=== PATIENT | female | born 2000 | race Two or more races ===

== ENCOUNTER 2025-05-20 22:27 | Emergency (ER) | payer OTHER ==
[~2025-05-20] VITALS: Ht 152.4 cm; Wt 43.3 kg
--- NOTE | 2025-05-20 23:03 | ED.PDOC ---
SOB-HPI HPI Comments HPI: 25-year-old female who came to ER for shortness of breath. Patient does have a history of asthma. Has been having shortness of breath since yesterday, progressively worsening with dry cough and wheezing. Denies any fever. Up on arrived at the ER, patient is saturating 86% on room air, was placed on 8 L/min it improved to 97% Initial Vitals BP: HR: RR: O2:97% Temp: Past Medical History: Asthma Past Surgical History: Hernia repair Social History: Denies smoking, alcohol intake or drugs Medications: None Allergies: Denies HPI: Poor Historian. REVIEW OF SYSTEMS: CONSTITUTIONAL: Denies acute: fever, diaphoresis, chills, generalized weakness. HEAD: Denies acute: headache, photophobia Eyes: Denies acute: Double vision, vision loss, eye pain, eye discharge. EARS: Denies acute: tinnitus, hearing loss, ear discharge, ear pain, THROAT: Denies acute: sore throat, swelling, difficulty swallowing , pain with swallowing, change in voice. NECK: Denies acute: neck pain, neck swelling, stiff neck. HEART: Denies acute : chest pain, palpitations, LUNGS: Denies acute: hemoptysis ABDOMEN: Denies acute: abdominal pain, Nausea, Vomiting, diarrhea, melena , hematemesis, hematochezia SKIN: Denies acute: rash, redness, lesions, itchiness. EXTREMITIES: Denies acute: calf pain, numbness, tingling, weakness, denies pain in extremity. Denies acute: Low back pain. Neuro: Denies acute: focal neurological deficit, motor or sensory focal neurological deficit, tremors, seizure like activity, confusion, dizziness, change in mental status, loss of bowel or bladder function, cauda equina like symptoms. : Denies acute: dysuria, hematuria, flank pain, increase in urinary frequency. PSYCH: Denies acute: hallucination, suicidal ideation, homicidal ideation. FEMALE: Denies acute: abnormal vaginal bleeding, foul odor, unusual discharge. Currently on her menstrual cycle PHYSICAL EXAM: General: ---[id number]-----acute distress, awake and alert. Head: normocephalic, atraumatic. Neck: supple, trachea is midline, no swelling. Throat: Normal phonation. Eyes:, no erythema, no purulent discharge, no proptosis, no icterus. Heart: regular rate, regular rhythm, no significant murmur appreciated. Lungs: no apparent respiratory distress, Able to speak in full sentences. No wheezing, no rhonchi, no crackles. No stridors Clear to auscultation bilaterally. Abdomen: non tender to palpation, non distended, soft, no guarding, no rebound, + bowel sounds. Neuro: Awake, Alert, oriented to name, self, situation, follows commands GCS=15. Speech is normal. Skin: no petechia, no purpura, no cyanosis, non-pale, not jaundice. Lower extremities: --no - Pitting edema no deformity, no focal swelling, no calf TTP. Makes eye contact. moves all four extremities. Face: no apparent facial droop. Ambulating in the ED independently. ED COURSE: DISCLAIMER: This medical document was created using an electronic medical record system with voice recognition software and computerized dictation system. Although this document has been carefully reviewed, there might still be some phonetic and typographical errors. Occasional wrong-word or "sound-alike" substitutions may have occurred due to the inherent limitations of voice recognition software. These areas are purely typographical due to imperfections of the software CMP.LY and do not reflect any compromise in the patient's medical care. Please read the chart carefully and recognize, using context, where these substitutions have occurred. Chief Complaint: Shortness of Breath Time Seen by MD: 23:02 Reviewed notes: Nurses Notes, Allergies Information Source: Patient Mode of Arrival: Ambulatory Past Medical History PAST MEDICAL HISTORY: Asthma Surgical History: Hernia Repair COURT RECORDER History: Denies all COURT RECORDER Hx Family History Family History: Reviewed,noncontributory to illness Social History Smoker: Non-Smoker Alcohol: Denies ETOH Use Drugs: Denies Drug Use Lives In: Home EKG EKG : Pulse Rate (adult): 87 Cardiac Rhythm: NSR Was a procedure done? Was a procedure done?: No Differential Dx Differential Diagnosis: Asthma, Bronchitis, Pneumonia, Respiratory Distress, Other (DDx include ACS, unstable angina, anxiety, PE, pneumothroax, neoplasm, cardiac ischemia, COPD, asthma, CHF, pleural effusion, tobacco abuse, pneumonia, hypoxia, hypercapnia, anemia., infection/sepsis., pulmonary edema. Asthma, Cardiac tamponade, infection.) X-Ray, Labs, Meds, VS Vital Signs Date Time Temp Pulse Resp B/P (MAP) Pulse Ox O2 Delivery O2 Flow Rate FiO2 05/21/25 00:11 97.9 88 16 109/58 (75) 96 97.9 05/20/25 23:18 87 05/20/25 23:13 18 98 Nasal Cannula* 2 28 05/20/25 23:08 87 05/20/25 22:50 97.5 97 16 106/65 (79) 96 97.5 05/20/25 22:50 Room Air* 0 21 05/20/25 22:34 97.9 108 20 116/80 98 97.9 Lab Test 05/21/25 00:03 05/20/25 23:00 Range/Units Troponin I High Sensitivity 29 31 </=34 ng/L White Blood Count 8.4 4.4-10.8 10^3/uL Red Blood Count 5.25 H 4.0-5.20 10^6/uL Hemoglobin 13.9 12.2-16.2 g/dL Hematocrit 41.4 36.0-46.0 % Mean Corpuscular Volume 78.8 L 80.0-100.0 fL Mean Corpuscular Hemoglobin 26.4 L 28.0-32.0 pg Mean Corpuscular Hemoglobin Concent 33.5 32.0-36.0 g/dL Red Cell Distribution Width 13.4 11.8-14.3 % Platelet Count 210 140-450 10^3/uL Mean Platelet Volume 7.6 6.9-10.8 fL Neutrophils (%) (Auto) 37.0-80.0 % Lymphocytes (%) (Auto) 10.0-50.0 % Monocytes (%) (Auto) 0.0-12.0 % Eosinophils (%) (Auto) 0.0-7.0 % Basophils (%) (Auto) 0.0-2.0 % Neutrophils # (Auto) 1.6-8.6 10 ^3/uL Lymphocytes # (Auto) 0.4-5.4 10 ^3/uL Monocytes # (Auto) 0-1.3 10 ^3/uL Differential Total Cells Counted 100.0 100 Neutrophils % (Manual) 32 L 37.0-80.0 Band Neutrophils % (Manual) 0 Lymphocytes % (Manual) 46 10.0-50.0 Monocytes % (Manual) 4 0-12 Eosinophils % (Manual) 17 H 0-7 Basophils % (Manual) 0 0.0-2.0 Metamyelocytes % (manual) 0 Myelocytes % (Manual) 0 Promyelocytes % (Manual) 0 Blast Cells % (Manual) 0 Reactive Lymphocytes 1 Platelet Estimate Adequate Microcytosis Slight D-Dimer, Quantitative 0.35 0.0-0.49 mg/L FEU Sodium Level 145 136-145 mmol/L Potassium Level 3.4 L 3.5-5.1 mmol/L Chloride Level 108 H 98-107 mmol/L Carbon Dioxide Level 28 20-31 mmol/L Anion Gap 9 5-15 Blood Urea Nitrogen 9 9-23 mg/dL Creatinine 0.71 0.550-1.02 mg/dL Glomerular Filtration Rate Calc 122 >90 mL/min BUN/Creatinine Ratio 12.7 10.0-20.0 Serum Glucose 90 74-106 mg/dL Calcium Level 9.2 8.7-10.4 mg/dL Total Bilirubin 0.3 0.2-1.0 mg/dL Aspartate Amino Transferase (AST) 14 13-40 U/L Alanine Aminotransferase (ALT) < 9 7-40 U/L Alkaline Phosphatase 74 46-116 U/L B-Type Natriuretic Peptide 9.73 0-100 pg/mL Total Protein 6.8 5.7-8.2 g/dL Albumin 4.4 3.2-4.8 g/dL [place] [id number] Ph: [phone] DIAGNOSTIC IMAGING Diagnostic Imaging Report : [id number] Signed PATIENT: PELON CASTRO ACCT: [id number] UNIT: [id number] : 2000 LOC: ER ROOM / BED: / AGE / SEX: 25 / F ADM STATUS: REG ER SERVICE [id number] ORDERING PHYSICIAN: SANTOSH KUMAR DO PROCEDURE(s): CXRP - CHEST PORTABLE REASON: sob ORDER NUMBER(s): [id number], ACCESSION NUMBER(s): [id number] INDICATION: sob TECHNIQUE: Frontal view of the chest. COMPARISON: None FINDINGS/IMPRESSION: Hazy opacity about the right lower lung, possibly at least partially on the basis of overlying soft tissue attenuation. The cardiomediastinal silhouette is unremarkable. No pleural effusion or pneumothorax. No acute osseous abnormality. ATED BY: EDITH RED MD DICTATED DATE/TIME: 05/21/25117 SIGNED BY: EDITH RED MD SIGNED DATE/TIME: 05/21/25117 CC: Time of 1ST Reevaluation: 22:58 Reevaluation 1ST: Unchanged Patient Education/Counseling: Diagnosis, Treatment Family Education/Counseling: Diagnosis, Treatment Comments MDM: patient presented with the above HPI.--acute respiratory distress/hypoxemia---workup was initiated. patient was found with the above mentioned diagnosis. the following medications were ordered: please refer to order lists of meds and tests obtained by myself Dr. Kumar. Patient ED course and VS have been stabilized. Patient has been reassessed in the ED and remained in a stable condition. Patient has been observed in the ED adequate length of time to insure improvement/stability. Escalation of care considered: Consideration of escalation to observation or admission Patient was ADMITTED to the medicine team for further evaluation and treatment of their presentation. However patient wanted to leave against medical advice. All the reports of any imaging studies that were ordered by myself were reviewed by myself. SEPSIS Sepsis Screen Date sepsis recognized/suspect: May 20, 2025 Time Sepsis recognized/suspect: 2231 Recent Procedure: No On Antibiotic Therapy: No Respiratory Rate >20: No Heart Rate >90: Yes Temp<36 C (96.8 F) or >38.3 C: No SBP <90 or MAP <65 mmHG: No New Acute Mental Status Change: No Is the patient on CPAP, BIPAP,: No Physician Orders Survey Interviewer (05/20/25 ) Chest Portable (05/20/25 22:57) Electrocardigram (05/20/25 22:57) Vital Signs Date Time Temp Pulse Resp B/P (MAP) Pulse Ox O2 Delivery O2 Flow Rate FiO2 05/21/25 00:11 97.9 88 16 109/58 (75) 96 97.9 05/20/25 23:18 87 05/20/25 23:13 18 98 Nasal Cannula* 2 28 05/20/25 23:08 87 05/20/25 22:50 97.5 97 16 106/65 (79) 96 97.5 05/20/25 22:50 Room Air* 0 21 05/20/25 22:34 97.9 108 20 116/80 98 97.9 Laboratory Tests Test 05/20/25 23:00 White Blood Count 8.4 10^3/uL (4.4-10.8) Departure 1 Departure Time of Disposition: 23:42 Impression: Primary Impression: Acute respiratory distress Additional Impressions: Hypoxemia Left against medical advice Disposition: 07 LEFT AGAINST MEDICAL ADVICE Condition: Guarded Additional Instructions: You are leaving against medical advice. Please seek medical attention HERMINIA please return to the emergency department if you change your mind. Discharged With: Self Critical Care Note Critical Care Time?: Yes (45 min-critical care time only) Critical care comment: Acute respiratory distress, hypoxemia Stability Stability form required: No I personally scribed for SANTOSH KUMAR DO ([email or web address]) on 05/20/25 at 23:03. Electronically submitted by Ted Diaz ([email or web address]). I personally scribed for SANTOSH KUMAR DO ([email or web address]) on 05/20/25 at 23:18. Electronically submitted by Ted Diaz ([email or web address]). I personally scribed for SANTOSH KUMAR DO ([email or web address]) on 05/20/25 at 23:19. Electronically submitted by Ted Diaz ([email or web address]). SANTOSH KUMAR DO May 20, 2025 23:03
[2025-05-20] MEDS: ALBUTEROL SULF 2.5 MG/0.5ML(0.5%) NEB SOLN NEB ONE (23:08)
[2025-05-20] MEDS: IPRATROPIUM BROM 0.5 MG/2.5ML INH SOL NEB ONE (23:08)
[2025-05-20] MEDS: methylPREDNISolone SOD SUCC 125 MG/2 ML VL IV ONE (23:08)
[2025-05-20 23:16] LABS: Hematocrit 41.4 % (36.0-46.0); Hemoglobin 13.9 g/dL (12.2-16.2); Mean Corpuscular Hemoglobin 26.4 pg (28.0-32.0); Mean Corpuscular Volume 78.8 fL (80.0-100.0)
[2025-05-20 23:27] LABS: Albumin 4.4 g/dL (3.2-4.8); Alkaline Phosphatase 74 U/L (46-116); Anion Gap 9 (5-15); BUN/Creatinine Ratio 12.7 (10.0-20.0); Calcium 9.2 mg/dL (8.7-10.4); Carbon Dioxide 28 mmol/L (20-31); Glucose 90 mg/dL (74-106); Sodium 145 mmol/L (136-145); Total Protein 6.8 g/dL (5.7-8.2)
[2025-05-20 23:28] LABS: Alanine Aminotransferase < 9 U/L (7-40); Bilirubin, Total 0.3 mg/dL (0.2-1.0); Blood Urea Nitrogen 9 mg/dL (9-23); Chloride 108 mmol/L (98-107); Potassium 3.4 mmol/L (3.5-5.1)
[2025-05-20 23:35] LABS: Total Cells Counted 100.0 (100)
[2025-05-21 00:11] VITALS: BP 109/58; PULSE 88; RESP 16; TEMP 97.9; O2SAT 96
--- NOTE | 2025-05-21 01:21 | DVH ---
INDICATION: sob TECHNIQUE: Frontal view of the chest. COMPARISON: None FINDINGS/IMPRESSION: Hazy opacity about the right lower lung, possibly at least partially on the basis of overlying soft t issue attenuation. The cardiomediastinal silhouette is unremarkable. No pleural effusion or pneumotho rax. No acute osseous abnormality.
--- NOTE | 2025-05-21 06:59 | ECG ---
[facility] Test Date: 2025-05-20 Test Time: 23:08:10 Pat Name: PELON CASTRO Department: [facility] ED Patient ID: [facility]-[id number] Room: Gender: F [employer] Drawing Checker: : 2000 Requested By: SANTOSH KUMAR Order Number: [id number] Reading MD: Ameya Dillard Measurements Intervals [place] Rate: 87 P: 76 NM: 128 QRS: 90 QRSD: 101 T: 24 QT: 379 QTc: 456 Interpretive Statements Sinus rhythm Borderline right axis deviation Electronically Signed On 05-22-2025 15:14:03 PDT by Ameya Dillard Please click the below link to view image of tracing.
== END 2025-05-21 00:15 | disposition left against medical advice (07) ==
LOC: ER 22:27
DX: R06.03 Acute respiratory distress (principal); R09.02 Hypoxemia; J45.909 Unspecified asthma, uncomplicated; Z98.890 Other specified postprocedural states
CPT/HCPCS: 36415; 71045; 80053; 83880; 84484; 85007; 85027; 85379; 93005; 94640; 96374; 99285; J2919; 99291

== ENCOUNTER 2025-05-26 11:53 | Emergency (ER) | payer OTHER ==
[~2025-05-26] VITALS: Ht 152.4 cm; Wt 42.0 kg
--- NOTE | 2025-05-26 12:47 | ED.PDOC ---
History of Present Illness HPI Comments Ms. Troy 25-year-old female with prior medical history of asthma, presents today with chief complaint of shortness of breath. The patient states she has had progressively worsening shortness of breath and cough for the last 7 days. She reports constant shortness of breath, which worsens at night associated with a cough that was initially dry, but she has begun to expectorate purulent phlegm. The cough is associated with upper back pain, described as sharp, non- radiating, and 7/10 intensity. Additionally refers fatigue and nasal congestion. Denies chills, fever, nausea, vomiting, throat pain, palpitations, and chest pain. She presented for evaluation last week, where she was treated with steroids and supplemental oxygen, after which the patient left AMA. Due to worsening of symptoms, the patient presents today for evaluation. On initial eval, the patient seems well, slightly tachycardic, saturating 95% on room air, ambulating without difficulty, with no overt signs of distress. Chief Complaint: Asthma Time Seen by MD: 12:25 Allergies: Coded Allergies: NO KNOWN ALLERGIES (Unverified , 05/20/25) Home Meds Active Scripts Albuterol Sulfate (VENTOLIN MDI) 90 Mcg Ih, 90 MCG IN Q6HP PRN for 10 Days, #1 MCG Prov:JOEL ESTRADA MD 05/26/25 Prednisone (Prednisone) 10 Mg Tab, 10 MG PO BS for 5 Days, #5 MG Prov:JOEL ESTRADA MD 05/26/25 Information Source: Patient Mode of Arrival: Ambulatory Severity: Mild Timing: Days Duration: Since onset Past Medical History PAST MEDICAL HISTORY: Asthma Past Medical History (Other): Inguinal hernia Surgical History: Hernia Repair HORSE RANCHER History: Denies all HORSE RANCHER Hx Family History Family History: Reviewed,noncontributory to illness Social History Smoker: Non-Smoker Alcohol: Denies ETOH Use Drugs: Denies Drug Use Lives In: Home Constitutional: reports: fatigue; denies: chills, diaphoresis, fever, malaise, sweats, weakness EENTM: reports: nose congestion; denies: blurred vision, double vision, ear drainage, ear pain, ear ringing, hearing loss, nasal discharge, throat pain Respiratory: reports: cough, shortness of breath, wheezing; denies: hemoptysis, orthopnea, SOB at rest, SOB with excertion Cardiovascular: denies: chest pain, dizzy spells, diaphoresis, Dyspnea on exertion, edema, irregular heart beat, left arm pain, lightheadedness, palpitations Gastrointestinal: denies: abdomen distended, abdominal pain, constipated, diarrhea, dysphagia, difficulty swallowing, hematemesis, melena, nausea, poor appetite, poor fluid intake, vomiting Genitourinary: denies: burning, dysuria, flank pain, frequency, hematuria, incontinence, pain, urgency Neurological: denies: dizziness, fainting, headache, numbness, paresthesia, pre-existing deficit, seizure, weakness Musculoskeletal: reports: back pain; denies: joint pain, joint swelling, muscle pain, muscle stiffness, neck pain Integumetry: denies: bruises, laceration, lesions, lumps, rash, wounds Physical Exam General Appearance: Normal, Thin HEENT: Normal ENT Inspection, PERRL/EOMI, Pharynx Normal Neck: Full Range of Motion, Non-Tender, Normal Inspection Respiratory: Chest Non-Tender, No Accessory Muscle Use, No Respiratory Distress, Wheezing (Left lung zimmerman and lower right lung field) Cardiovascular: No Edema, No Murmur, Normal Peripheral Pulses, Regular Rate/Rhythm Breast Exam: Deferred Gastrointestinal: Non Tender, Normal Bowel Sounds, Soft Genitalia: Deferred Pelvic: Deferred Rectal: Deferred Extremities: Normal capillary refill, Normal inspection, Normal range of motion, Non-tender, No pedal edema Neurologic: Aphasia, Normal Affect, Normal Mood Cerebellar Function: Normal Reflexes: NOT DONE Skin: Normal Color Peripheral Pulses: 4+ dorsalis pedis (R), 4+ dorsalis pedis (L) Lymphatic: Other (No cervical adenopathy) Was a procedure done? Was a procedure done?: No Differential Dx Considerations may include: Acute respiratory failure, asthma exacerbation, pneumonia, acute bronchitis, influenza X-Ray, Labs, Meds, VS Vital Signs Date Time Temp Pulse Resp B/P (MAP) Pulse Ox O2 Delivery O2 Flow Rate FiO2 05/26/25 14:08 98.1 100 16 115/71 (86) 95 98.1 05/26/25 12:59 96 Room Air* 0 21 05/26/25 11:54 98.2 105 18 115/85 95 98.2 Lab Test 05/26/25 13:30 05/26/25 12:45 Range/Units Influenza Type A Antigen Negative Negative Influenza Type B Antigen Negative Negative SARS-CoV-2 Antigen (Rapid) Negative NEGATIVE White Blood Count 9.4 4.4-10.8 10^3/uL Red Blood Count 5.75 H 4.0-5.20 10^6/uL Hemoglobin 15.4 12.2-16.2 g/dL Hematocrit 45.7 # 36.0-46.0 % Mean Corpuscular Volume 79.4 L 80.0-100.0 fL Mean Corpuscular Hemoglobin 26.8 L 28.0-32.0 pg Mean Corpuscular Hemoglobin Concent 33.7 32.0-36.0 g/dL Red Cell Distribution Width 13.5 11.8-14.3 % Platelet Count 278 140-450 10^3/uL Mean Platelet Volume 7.9 6.9-10.8 fL Neutrophils (%) (Auto) 37.0-80.0 % Lymphocytes (%) (Auto) 10.0-50.0 % Monocytes (%) (Auto) 0.0-12.0 % Basophils (%) (Auto) 0.0-2.0 % Neutrophils # (Auto) 1.6-8.6 10 ^3/uL Lymphocytes # (Auto) 0.4-5.4 10 ^3/uL Monocytes # (Auto) 0-1.3 10 ^3/uL Differential Total Cells Counted 100.0 100 Neutrophils % (Manual) 52 37.0-80.0 Band Neutrophils % (Manual) 1 Lymphocytes % (Manual) 19 10.0-50.0 Monocytes % (Manual) 11 0-12 Eosinophils % (Manual) 17 H 0-7 Basophils % (Manual) 0 0.0-2.0 Metamyelocytes % (manual) 0 Myelocytes % (Manual) 0 Promyelocytes % (Manual) 0 Blast Cells % (Manual) 0 Reactive Lymphocytes 0 Platelet Estimate Adequate D-Dimer, Quantitative < 0.19 0.0-0.49 mg/L FEU Current Medications Medications (Trade) Dose Ordered Sig/Linda Route Start Time Stop Time Status Last Admin Methylprednisolone Sodium Succinate (Solu Medrol) 125 mg ONCE ONCE IV 05/26/25 12:45 05/26/25 12:46 DC 05/26/25 12:57 Ipratropium Stout (Atrovent Medneb) 0.5 mg ONCE ONCE NEB 05/26/25 12:45 05/26/25 12:46 DC 05/26/25 12:57 Levalbuterol HCl (Xopenex Medneb) 1.25 mg ONCE ONCE NEB 05/26/25 13:00 05/26/25 13:01 DC 05/26/25 12:58 Time of 1ST Reevaluation: 13:43 Reevaluation 1ST: Improved Time of 2ND Reevaluation: 14:30 Reevaluation 2ND: Resolved Patient Education/Counseling: Diagnosis, Treatment Family Education/Counseling: No Family Present Comments The patient presents today with chief complaint of shortness of breath and cough On initial evaluation, the patient was slightly tachycardic, saturating 95% on room air, without overt signs of distress Examination was significant for wheezing in left lung zimmerman and lower right lung field. Chest x-ray shows no acute cardiopulmonary process CBC is within normal range. D-dimer is less than 0.19. The patient was given nebulizer treatment with levalbuterol and ipratropium. As well as methylprednisolone 125 mg IV On re-evaluation, patient states she feels better, wheezing has resolved, which continued on secondary re-evaluation Vitals are stable She is considered stable for discharge home with prescription for albuterol inhaler and oral steroids SEPSIS Sepsis Screen Date sepsis recognized/suspect: May 26, 2025 Time Sepsis recognized/suspect: 1154 Recent Procedure: No On Antibiotic Therapy: No Respiratory Rate >20: No Heart Rate >90: Yes Temp<36 C (96.8 F) or >38.3 C: No SBP <90 or MAP <65 mmHG: No New Acute Mental Status Change: No Is the patient on CPAP, BIPAP,: No Physician Orders Chest Two Views Routine (05/26/25 12:35) Vital Signs Date Time Temp Pulse Resp B/P (MAP) Pulse Ox O2 Delivery O2 Flow Rate FiO2 05/26/25 14:08 98.1 100 16 115/71 (86) 95 98.1 05/26/25 12:59 96 Room Air* 0 21 05/26/25 11:54 98.2 105 18 115/85 95 98.2 Laboratory Tests Test 05/26/25 12:45 White Blood Count 9.4 10^3/uL (4.4-10.8) Medications Medications Dose Ordered Sig/Linda Route Start Time Stop Time Status Last Admin Dose Admin Ipratropium Stout 0.5 mg ONCE ONCE NEB 05/26/25 12:45 05/26/25 12:46 DC 05/26/25 12:57 Levalbuterol HCl 1.25 mg ONCE ONCE NEB 05/26/25 13:00 05/26/25 13:01 DC 05/26/25 12:58 Methylprednisolone Sodium Succinate 125 mg ONCE ONCE IV 05/26/25 12:45 05/26/25 12:46 DC 05/26/25 12:57 Departure 1 Departure Time of Disposition: 14:44 Impression: Primary Impression: Acute asthma exacerbation Disposition: HOME / SELF CARE / HOMELESS Condition: Stable Additional Instructions: He presented today due to shortness of breath and cough On initial evaluation, the you were slightly tachycardic, saturating 95% on room air, without overt signs of distress Examination was significant for wheezing in left lung zimmerman and lower right lung field. Your workup which included a CBC, D-dimer, and chest x-ray was benign You were given nebulizer breathing treatment with levalbuterol and ipratropium as well as IV steroids On re-evaluation, wheezing had resolved You continued to be stable on secondary evaluation, UA considered stable for discharge home with prescription for a Medrol inhaler to be used as needed and oral prednisone 10 mg via oral route for 5 days We recommend that you set up care soon with a primary care physician in the area in order to address your asthma needs Should your symptoms persist or worsen, or should you have any further questions or concerns please present to the emergency department e-Prescriptions Albuterol Sulfate (VENTOLIN MDI) 90 Mcg Ih 90 MCG IN Q6HP PRN for 10 Days, #1 MCG Prov: JOEL ESTRADA MD 05/26/25 Prednisone (Prednisone) 10 Mg Tab 10 MG PO BS for 5 Days, #5 MG Prov: JOEL ESTRADA MD 05/26/25 Discharged With: Self Critical Care Note Critical Care Time?: No Stability Stability form required: YOBANY [place] RESIDENT May 26, 2025 12:47 JOEL ESTRADA MD May 26, 2025 14:34
[2025-05-26] MEDS: methylPREDNISolone SOD SUCC 125 MG/2 ML VL IV ONE (12:57)
[2025-05-26] MEDS: LEVALBUTEROL HCL 1.25 MG/3 ML NEB ONE (12:57)
[2025-05-26] MEDS: IPRATROPIUM BROM 0.5 MG/2.5ML INH SOL NEB ONE (12:57)
[2025-05-26] MEDS: LEVALBUTEROL HCL 1.25 MG/3 ML NEB NEB ONE (12:58)
[2025-05-26 13:19] LABS: Hemoglobin 15.4 g/dL (12.2-16.2)
[2025-05-26 13:21] LABS: Hematocrit 45.7 % (36.0-46.0); Mean Corpuscular Hemoglobin 26.8 pg (28.0-32.0); Mean Corpuscular Volume 79.4 fL (80.0-100.0)
--- NOTE | 2025-05-26 13:26 | DVH ---
XY CHEST TWO VIEWS ROUTINE CLINICAL HISTORY: SOB COMPARISON: None TECHNIQUE: Frontal and lateral view of the chest was obtained FINDINGS: Lines and Tubes: None Lungs: No focal consolidation. Pleura: No effusion. No pneumothorax. Cardiomediastinal contours: Unremarkable Bones: No acute osseous abnormality. IMPRESSION: 1. No acute cardiopulmonary disease.
[2025-05-26] MEDS ORDERED: LEVALBUTEROL HCL 1.25 MG/3 ML NEB NEB ONE (13:45)
[2025-05-26] MEDS ORDERED: IPRATROPIUM BROM 0.5 MG/2.5ML INH SOL NEB ONE (13:45)
[2025-05-26 13:48] LABS: Total Cells Counted 100.0 (100)
[2025-05-26 14:13] LABS: COVID19 ANTIGEN SOFIA FIA NEGATIVE (NEGATIVE)
[2025-05-26] MEDS ORDERED: PRED10TA PO (14:34)
[2025-05-26] MEDS ORDERED: ALBUAER3 IN (14:34)
[2025-05-26 14:55] VITALS: BP 115/71; PULSE 100; RESP 16; TEMP 98.1; O2SAT 95
[2025-05-26] MEDS ORDERED: LEVALBUTEROL HCL 1.25 MG/3 ML NEB NEB SCH (18:00)
== END 2025-05-26 14:58 | disposition home or self-care (01) ==
LOC: ER 11:53
DX: J45.901 Unspecified asthma with (acute) exacerbation (principal); Z98.890 Other specified postprocedural states; Z79.899 Other long term (current) drug therapy; Z20.822 Contact with and (suspected) exposure to COVID-19
CPT/HCPCS: 36415; 71046; 85007; 85027; 85379; 87426; 87804; 94640; 96374; 99284; J2919